=== PATIENT | male | born 1995 | race Caucasian/White ===

== ENCOUNTER 2020-09-22 22:03 | Emergency (ER) | payer OTHER ==
[~2020-09-22] VITALS: Ht 175.3 cm; Wt 85.1 kg
[2020-09-22] MEDS ORDERED: CLAR10CA3 PO (22:14)
[2020-09-23] MEDS ORDERED: OLOP0.1D OP (01:14)
[2020-09-23] MEDS ORDERED: [UNRECOGNIZED DRUG - CODE] (01:14)
[2020-09-23] MEDS ORDERED: FLON1SPR NARES (01:14)
[2020-09-23] MEDS ORDERED: PSEU120T19 PO (01:18)
[2020-09-23 01:23] VITALS: BP 126/61
== END 2020-09-23 01:24 | disposition home or self-care (01) ==
LOC: M ED 22:03
DX: R09.89 Other specified symptoms and signs involving the circulatory and respiratory systems (principal); J30.2 Other seasonal allergic rhinitis; R09.81 Nasal congestion; Z79.899 Other long term (current) drug therapy